=== PATIENT | female | born 1965 | race Caucasian/White ===

== ENCOUNTER 2021-07-31 23:02 | Emergency (ER) | payer MEDICAID ==
[~2021-07-31] VITALS: Ht 165.1 cm; Wt 68.0 kg
[2021-08-01] MEDS ORDERED: cefTRIAXone SOD 500 MG VL IM ONE (01:30)
[2021-08-01] MEDS ORDERED: AZITHROMYCIN 250 MG TAB PO ONE (01:30)
[2021-08-01 01:45] VITALS: BP 145/55
[2021-08-01] MEDS ORDERED: HYDROmorphone HCL 2 MG/ML VL IM ONE ×2 (01:45)
[2021-08-01] MEDS ORDERED: AZIT250T8 PO (02:18)
== END 2021-08-01 02:53 | disposition home or self-care (01) ==
LOC: ER 23:06
DX: R51.9 Headache, unspecified (principal); Z88.0 Allergy status to penicillin; W55.03XA Scratched by cat, initial encounter; Y93.89 Activity, other specified; Y92.89 Other specified places as the place of occurrence of the external cause; Y99.8 Other external cause status
CPT/HCPCS: 96372; 99284; J0696; J1170